=== PATIENT | female | born 1995 | race African-American/Black ===

== ENCOUNTER 2017-04-23 03:26 | Emergency (ER) | payer SELFPAY ==
[~2017-04-23] VITALS: Ht 167.6 cm; Wt 71.5 kg
[2017-04-23 03:30] VITALS: Ht 167.6 cm; Wt 71.5 kg
[2017-04-23] MEDS ORDERED: ONDANSETRON 4 MG INJ IV STA (06:07)
[2017-04-23] MEDS ORDERED: SOD CHLORIDE 0.9% 1,000 ML IV STA (06:07)
[2017-04-23 07:22] LABS: ADD SCAN DIFF NO
[2017-04-23 07:26] LABS: BASOPHILS % 0.5 % (0.0-2.0); EOSINOPHILS # 0.5 10^3/ul (0.0-0.5); EOSINOPHILS % 6.8 % (0.0-7.0); HEMATOCRIT 33.5 % (37.0-47.0); LYMPHOCYTES # 3.2 10^3/ul (0.8-2.9); LYMPHOCYTES % 40.5 % (18.0-55.0); MEAN CORPUSCULAR HEMOGLOBIN 31.1 pg (29.0-33.0); MEAN CORPUSCULAR HGB CONC 32.8 g/dl (32.0-37.0); MEAN CORPUSCULAR VOLUME 94.6 fl (72.0-104.0); MEAN PLATELET VOLUME 11.8 fl (7.4-10.4); MONOCYTE # 0.6 10^3/ul (0.3-0.9); MONOCYTES % 7.8 % (0.0-13.0); NEUTROPHIL # 3.5 10^3/ul (1.6-7.5); NEUTROPHILS % 44.3 % (30.0-74.0); PLATELET COUNT 241 10^3/UL (140-415); RED BLOOD COUNT 3.54 10^6/ul (4.20-5.40); RED CELL DISTRIBUTION WIDTH 13.4 % (11.5-14.5); WHITE BLOOD COUNT 7.9 10^3/ul (4.8-10.8)
[2017-04-23 07:48] LABS: ALBUMIN 4.5 g/dl (3.3-4.9); ALBUMIN/GLOBULIN RATIO 1.8; BILIRUBIN,INDIRECT 0.1 mg/dl (0-1.1); BILIRUBIN,TOTAL 0.1 mg/dl (0.2-1.3); CALCIUM 8.9 mg/dl (8.4-10.2); CREATININE 0.74 mg/dl (0.44-1.00); POTASSIUM 3.8 mmol/L (3.5-5.1)
[2017-04-23] MEDS ORDERED: KETOROLAC 30 MG INJ IV STA (09:25)
[2017-04-23] MEDS ORDERED: ONDA4TAB14 PO (10:43)
[2017-04-23] MEDS ORDERED: NAPR-688 PO (10:43)
--- NOTE | 2017-04-23 10:51 | ERD ---
ER Documentation Chief Complaint Date/Time DATE: 04/23/17 TIME: 10:47 Chief Complaint diffuse abd pain with n/v and no period for 2 mos HPI This 21-year-old female presented for nausea vomiting and diarrhea for the last day. States that she had diarrhea yesterday but has not had it yet today. She has diffuse generalized abdominal pain that is mild. Also states she has not had a period for 2 months. She is concerned she may possibly be . She is otherwise healthy. ROS All systems reviewed and are negative except as per history of present illness. Medications Home Meds Active Scripts Naproxen* (Naproxen*) 500 Mg Tablet, 500 MG PO BID Y for PAIN, #17 TAB Prov:KIRSTIE DE LA CRUZ DO 04/23/17 Ondansetron (Ondansetron Odt) 4 Mg Tab.rapdis, 4 MG PO Q6H Y for NAUSEA AND/OR VOMITING, #10 TAB Prov:KIRSTIE DE LA CRUZ DO 04/23/17 Allergies Allergies: Coded Allergies: Penicillins (Verified Allergy, Unknown, 04/23/17) PMhx/Soc Hx Respiratory Disorders: Yes (asthma) Smoking Status: Current every day smoker Physical Exam Vitals Vital Signs Date Time Temp Pulse Resp B/P Pulse Ox O2 Delivery O2 Flow Rate FiO2 04/23/17 03:30 97.9 65 18 127/67 97 Physical Exam Const: [] No distress Head: Atraumatic Eyes: Normal Conjunctiva ENT: Normal External Ears, Nose and Mouth. Neck: Full range of motion..~ No meningismus. Resp: Clear to auscultation bilaterally Cardio: Regular rate and rhythm, no murmurs Abd: Soft, mild diffuse abdominal pain without guarding or rebound, non distended. Normal bowel sounds Skin: No petechiae or rashes Back: No midline or flank tenderness Ext: No cyanosis, or edema Neur: Awake and alert and oriented 3, no focal deficits Psych: Normal Mood and Affect Result Diagram: 04/23/17 0633 04/23/17 0633 Results 24 hrs Laboratory Tests Test 04/23/17 06:33 White Blood Count 7.910^3/ul Red Blood Count 3.5410^6/ul Hemoglobin 11.0g/dl Hematocrit 33.5% Mean Corpuscular Volume 94.6fl Mean Corpuscular Hemoglobin 31.1pg Mean Corpuscular Hemoglobin Concent 32.8g/dl Red Cell Distribution Width 13.4% Platelet Count 33124^3/UL Mean Platelet Volume 11.8fl Neutrophils % 44.3% Lymphocytes % 40.5% Monocytes % 7.8% Eosinophils % 6.8% Basophils % 0.5% Nucleated Red Blood Cells % 0.0/100WBC Neutrophils # 3.510^3/ul Lymphocytes # 3.210^3/ul Monocytes # 0.610^3/ul Eosinophils # 0.510^3/ul Basophils # 0.010^3/ul Nucleated Red Blood Cells # 0.010^3/ul Sodium Level 137mmol/L Potassium Level 3.8mmol/L Chloride Level 105mmol/L Carbon Dioxide Level 27mmol/L Anion Gap 9 Blood Urea Nitrogen 10mg/dl Creatinine 0.74mg/dl Glucose Level 82mg/dl Calcium Level 8.9mg/dl Total Bilirubin 0.1mg/dl Direct Bilirubin 0.00mg/dl Indirect Bilirubin 0.1mg/dl Aspartate Amino Transf (AST/SGOT) 21IU/L Alanine Aminotransferase (ALT/SGPT) 26IU/L Alkaline Phosphatase 67IU/L Total Protein 7.0g/dl Albumin 4.5g/dl Globulin 2.50g/dl Albumin/Globulin Ratio 1.80 Lipase 292U/L Beta HCG, Quantitative < 2.4mIU/ml Current Medications Medications (Trade) Dose Ordered Sig/Elham Route PRN Reason Start Time Stop Time Status Last Admin Dose Admin Sodium Chloride (NS) 1,000 ml @ 1,000 mls/hr Q1H STAT IV 04/23/17 06:07 04/23/17 07:06 DC 04/23/17 06:45 Ondansetron HCl (Zofran Inj) 4 mg ONCE STAT IV 04/23/17 06:07 04/23/17 06:08 DC 04/23/17 06:45 Ketorolac Tromethamine (Toradol) 30 mg ONCE STAT IV 04/23/17 09:25 04/23/17 09:36 DC 04/23/17 10:12 Procedures/MDM Signs and symptoms of viral gastroenteritis without any dehydration. Patient does have mild anemia. I have very low suspicion for any serious abdominal emergency. Patient's beta hCG is not detectable. She was hydrated with normal saline given Zofran which resolved her nausea. Abdominal pain was treated with a Toradol which resolved her abdominal pain. Going to discharge with primary care instructions as well as return precautions. Interestingly when I was discussing the results with the patient she has me how we obtain results without obtaining any blood or urine. Patient had declined urine testing. I informed her that we had drawn it through the IV. I am pending the laboratories her to take home and follow-up with her primary doctor. Departure Diagnosis: Primary Impression: Nausea vomiting and diarrhea Additional Impressions: Acute abdominal pain Dysmenorrhea Condition: Stable Patient Instructions: Abdominal Pain, Unknown Cause, (Female), Dysmenorrhea, Vomiting And Diarrhea, Nonspecific (Adult) Referrals: [facility] YOU HAVE RECEIVED A MEDICAL SCREENING EXAM AND THE RESULTS INDICATE THAT YOU DO NOT HAVE A CONDITION THAT REQUIRES URGENT TREATMENT IN THE EMERGENCY DEPARTMENT. FURTHER EVALUATION AND TREATMENT OF YOUR CONDITION CAN WAIT UNTIL YOU ARE SEEN IN YOUR DOCTORS OFFICE WITHIN THE NEXT 1-2 DAYS. IT IS YOUR RESPONSIBILITY TO MAKE AN APPOINTMENT FOR FOLOW-UP CARE. IF YOU HAVE A PRIMARY DOCTOR --you should call your primary doctor and schedule an appointment IF YOU DO NOT HAVE A PRIMARY DOCTOR YOU CAN CALL OUR PHYSICIAN REFERRAL HOTLINE AT IF YOU CAN NOT AFFORD TO SEE A PHYSICIAN YOU CAN CHOSE FROM THE FOLLOWING [facility] [address] [facility]. [facility] [address] [facility]. [facility] [address] [facility] [facility] [address]. [facility] [address] [facility]. [facility]. [address] Additional Instructions: Call your primary care doctor TOMORROW for an appointment during the next 2-3 days.See the doctor sooner or return here if your condition worsens before your appointment time. KIRSTIE DE LA CRUZ DO Apr 23, 2017 10:51
[2017-04-23 11:16] VITALS: BP 121/67; PULSE 75; RESP 18
== END 2017-04-23 13:26 | disposition home or self-care (01) ==
LOC: E/R 03:26
DX: R11.2 Nausea with vomiting, unspecified (principal); R19.7 Diarrhea, unspecified; N94.6 Dysmenorrhea, unspecified; J45.909 Unspecified asthma, uncomplicated; F17.210 Nicotine dependence, cigarettes, uncomplicated
CPT/HCPCS: 36415; 80053; 83690; 84702; 85025; 96374; 96375; 99284; J1885; J2405; J7030